=== PATIENT | female | born 1965 | race Caucasian/White ===

== ENCOUNTER 2018-07-04 11:20 | Observation (INO) ==
[2018-07-04 12:11] LABS: Bilirubin,Urine Negative (Negative); Blood,Urine Large (Negative); Clarity,Urine Turbid (Clear); Color,Urine Dark Yellow (Yellow); Glucose,Urine (UA) Normal (Normal); Ketones,Urine 15 mg/dL (Negative); Leukocyte Esterase,Urine Large (Negative); Nitrite,Urine Positive (Negative); Protein,Urine 100 mg/dL (Neg-Trace)
[2018-07-04] MEDS ORDERED: Isovue-370 500 ML INFUS..BTL IV ONE (12:12)
[2018-07-04 12:13] LABS: Bacteria,Urine Many per hpf (None-Few); Hyaline Casts,Urine None Seen per lpf (None-Few); Squamous Epithelial Cell,Urine Many per lpf (None-Few); WBC,Urine TNTC per hpf (0-3)
[2018-07-04 12:24] LABS: Basophils % 0.1 %; Eosinophils % 0.1 %; Hematocrit 34.5 % (35.3-44.9); Hemoglobin 11.7 g/dL (11.5-15.4); Immature Granulocytes % 0.5 % (0-4); Lymphocytes # 0.7 K/mcL (0.6-4.6); Lymphocytes % 6.2 %; Mean Corpuscular HGB Conc 33.9 g/dL (31.6-35.5); Mean Corpuscular Hemoglobin 30.9 pg (28.0-33.3); Mean Platelet Volume 10.8 fL (9.4-12.4); Monocytes # 0.8 K/mcL (0.0-1.3); Neutrophils # 9.7 K/mcL (1.6-8.9); Platelet Count 190 K/mcL (140-400); Red Blood Count 3.79 M/mcL (3.82-4.97); Red Cell Distribution Width 12.6 % (11.5-14.5); Segmented Neutrophils % 86.1 %
[2018-07-04 12:44] LABS: Troponin I < 0.03 ng/mL (< 0.04)
[2018-07-04 12:45] LABS: Alanine Aminotransferase 19 Units/L (7-52); Albumin 3.7 g/dL (3.5-5.7); Albumin/Globulin Ratio 0.9 (1.1-2.2); Alkaline Phosphatase 131 Units/L (34-104); Aspartate Amino Transferase 21 Units/L (13-39); BUN/Creatinine Ratio 15 (6-26); Bilirubin,Direct 0.8 mg/dL (0.0-0.2); Bilirubin,Indirect 0.5 mg/dL (0.0-1.2); Bilirubin,Total 1.3 mg/dL (0.3-1.0); Blood Urea Nitrogen 22 mg/dL (6-20); Carbon Dioxide 22 mEq/L (23-29); Chloride 94 mEq/L (98-107); Globulin 4.1 g/dL (2.4-3.5); Glucose 117 mg/dL (70-105); Magnesium 1.8 mg/dL (1.6-2.6); Osmolality,Calculated 272 (280-300); Potassium 3.5 mEq/L (3.5-5.1); Sodium 129 mEq/L (136-145); Total Protein 7.8 g/dL (6.4-8.9); eGFR For Non-African Americans 37 (> 60)
[2018-07-04] MEDS ORDERED: 0.9 % Sodium Chloride 1,000 ML IVC ONE (14:35)
--- NOTE | 2018-07-04 15:22 | Emergency Department Note ---
Disposition Clinical Impression: Pyelonephritis, CATALINA (acute kidney injury) Sepsis Qualifiers: Sepsis type: sepsis due to unspecified organism Qualified Code(s): A41.9 - Sepsis, unspecified organism Disposition: Admitted As Inpatient Condition: Good Referrals: NONE,PCP [Primary Care Provider] - General Adult HPI - General Chief complaint: ED Nausea/Vomiting/Diarrhea Stated complaint: "vomiting,chills,back pain" Time Seen by Provider: 07/04/18 11:26 Source: patient Limitations: no limitations Nursing Notes Reviewed: Yes Vital Signs Reviewed: Yes - History of Present Illness HPI Narrative: Patient presents today for evaluation of multiple complaints. Patient states that she has burning with urination for over the last week. Patient started developing side pain which she states is worse in the right flank pain. Patient states she is also had fevers at home as well as nausea and decreased appetite. Patient states she has not been able to keep anything down over the last day. Patient reevaluated for pyonephritis and likely admitted secondary to elevated heart rate and concern for sepsis. Pain Scale: 4 - Related Data Home Medications Medication Instructions Recorded Confirmed No Known Home Drugs 07/04/18 07/04/18 Allergies Allergy/AdvReac Type Severity Reaction Status Date / Time Penicillins Allergy swelling Verified 07/04/18 13:27 acetaminophen AdvReac Chest Pain Verified 07/04/18 13:27 [From Tylenol-Codeine] codeine AdvReac Chest Pain Verified 07/04/18 13:27 [From Tylenol-Codeine] tramadol [From Ultram] AdvReac Chest Pain Verified 07/04/18 13:27 All systems ED: reviewed and negative except as stated. Review of Systems: As Per HPI Constitutional: Reports: fever, chills, weakness ENT ED: Denies: congestion Cardiovascular: Denies: chest pain, palpitations Respiratory: Reports: cough. Denies: dyspnea, wheezes Gastrointestinal: Reports: abdominal pain, nausea. Denies: vomiting, diarrhea, constipation Genitourinary: Reports: urgency, dysuria, frequency Musculoskeletal: Reports: back pain Integumentary: Denies: rash, abrasion Neurological: Reports: weakness (Generalized). Denies: headache Endocrine: Reports: fatigue Past Medical History - Past Medical History Medical history: Reports: no medical history Psychiatric history: Reports: anxiety [employer] history: Reports: no [employer] history, bilateral tubal ligation - Social History Smoking Status: Current every day smoker Smokeless Tobacco Status: No Alcohol use: Reports: none Drug use: Reports: none Physical Exam General: Well appearing, nontoxic, no acute distress Head: Normocephalic Atraumatic Eyes: PERRL, EOMI ENT: Airway patent, no stridor Neck: supple, no meningismus Chest: Lungs clear to auscultation bilateral Cardiac: Regular rate and rhythm, no murmurs, rubs or gallops Abdomen: soft, mild generalized tenderness with our rebound or guarding, CVA tenderness worse in the right than the left. Musculoskeletal: Calves symmetric, nontender Skin: No rash, normal skin tone Neuro: Alert and Oriented to person, place, and time; No focal deficit, - General Limitations: no limitations General appearance: alert, in no apparent distress Course - Reevaluation(s) Reevaluation #1: Significant urinary tract infection in the setting of acute kidney injury given the fact that we do not have the previous creatinine. Patient does have leukocytosis as well as tachycardia. Patient will receive fluids as well as IV antibiotics. Patient be admitted to the hospital service for further evaluation. - Consultations Consultation #1: Discussed with hospitalist. Patient accepted for admission. Vital Signs Temperature 100.1 F H 07/04/18 11:26 Pulse Rate 112 07/04/18 11:26 Respiratory Rate 18 07/04/18 11:26 Blood Pressure 125/68 07/04/18 11:26 O2 Sat by Pulse Oximetry 97 07/04/18 11:26 Temperature 100.1 F H 07/04/18 11:35 Pulse Rate 107 07/04/18 15:00 Respiratory Rate 14 07/04/18 15:00 Blood Pressure 121/60 07/04/18 15:00 O2 Sat by Pulse Oximetry 99 07/04/18 15:00 Oxygen Delivery Oxygen Delivery Room Air Medical Decision Making - Lab Data Result diagrams: 07/04/18 11:52 07/04/18 11:52 Lab Results 07/04/18 07/04/18 07/04/18 Range/Units 11:52 11:52 11:52 WBC 11.3 H (4.3-11.1) K/mcL RBC 3.79 L (3.82-4.97) M/mcL Hgb 11.7 (11.5-15.4) g/dL Hct 34.5 L (35.3-44.9) % MCV 91.0 (83.0-100.0) fL MCH 30.9 (28.0-33.3) pg MCHC 33.9 (31.6-35.5) g/dL RDW 12.6 (11.5-14.5) % Plt Count 190 (140-400) K/mcL MPV 10.8 (9.4-12.4) fL Immature Gran % 0.5 (0-4) % Seg Neutrophils % 86.1 % Lymphocytes % 6.2 % Monocytes % 7.0 % Eosinophils % 0.1 % Basophils % 0.1 % Neutrophils # 9.7 H (1.6-8.9) K/mcL Lymphocytes # 0.7 (0.6-4.6) K/mcL Monocytes # 0.8 (0.0-1.3) K/mcL Eosinophils # 0.0 (0.0-0.6) K/mcL Basophils # 0.0 (0.0-0.2) K/mcL Sodium 129 L (136-145) mEq/L Potassium 3.5 (3.5-5.1) mEq/L Chloride 94 L (98-107) mEq/L Carbon Dioxide 22 L (23-29) mEq/L BUN 22 H (6-20) mg/dL Creatinine 1.47 H (0.60-1.20) mg/dL Est GFR ( Amer) 45 L (> 60) Est GFR (Non-Af Amer) 37 L (> 60) BUN/Creatinine Ratio 15 (6-26) Glucose 117 H (70-105) mg/dL Calculated Osmolality 272 L (280-300) Lactic Acid (0.5-2.2) mmol/L Calcium 9.0 (8.6-10.3) mg/dL Magnesium 1.8 (1.6-2.6) mg/dL Total Bilirubin 1.3 H (0.3-1.0) mg/dL Direct Bilirubin 0.8 H (0.0-0.2) mg/dL Indirect Bilirubin 0.5 (0.0-1.2) mg/dL AST 21 (13-39) Units/L ALT 19 (7-52) Units/L Alkaline Phosphatase 131 H (34-104) Units/L Troponin I < 0.03 (< 0.04) ng/mL Serum Total Protein 7.8 (6.4-8.9) g/dL Albumin 3.7 (3.5-5.7) g/dL Globulin 4.1 H (2.4-3.5) g/dL Albumin/Globulin Ratio 0.9 L (1.1-2.2) Lipase 16 (11-82) Units/L Urine Color (Yellow) Urine Clarity (Clear) Urine pH (5.0-8.0) pH Units Ur Specific [place] (1.010-1.025) Urine Protein (Neg-Trace) mg/dL Urine Glucose (UA) (Normal) mg/dL Urine Ketones (Negative) mg/dL Urine Blood (Negative) Urine Nitrite (Negative) Urine Bilirubin (Negative) Urine Urobilinogen (Normal) mg/dL Ur Leukocyte Esterase (Negative) Urine Microscopic RBC (0-3) per hpf Urine Microscopic WBC (0-3) per hpf Ur Squamous Epith Cells (None-Few) per lpf Urine Bacteria (None-Few) per hpf Hyaline Casts (None-Few) per lpf Ur Culture Indicated? (NO) 07/04/18 07/04/18 Range/Units 11:52 11:54 WBC (4.3-11.1) K/mcL RBC (3.82-4.97) M/mcL Hgb (11.5-15.4) g/dL Hct (35.3-44.9) % MCV (83.0-100.0) fL MCH (28.0-33.3) pg MCHC (31.6-35.5) g/dL RDW (11.5-14.5) % Plt Count (140-400) K/mcL MPV (9.4-12.4) fL Immature Gran % (0-4) % Seg Neutrophils % % Lymphocytes % % Monocytes % % Eosinophils % % Basophils % % Neutrophils # (1.6-8.9) K/mcL Lymphocytes # (0.6-4.6) K/mcL Monocytes # (0.0-1.3) K/mcL Eosinophils # (0.0-0.6) K/mcL Basophils # (0.0-0.2) K/mcL Sodium (136-145) mEq/L Potassium (3.5-5.1) mEq/L Chloride (98-107) mEq/L Carbon Dioxide (23-29) mEq/L BUN (6-20) mg/dL Creatinine (0.60-1.20) mg/dL Est GFR ( Amer) (> 60) Est GFR (Non-Af Amer) (> 60) BUN/Creatinine Ratio (6-26) Glucose (70-105) mg/dL Calculated Osmolality (280-300) Lactic Acid 1.1 (0.5-2.2) mmol/L Calcium (8.6-10.3) mg/dL Magnesium (1.6-2.6) mg/dL Total Bilirubin (0.3-1.0) mg/dL Direct Bilirubin (0.0-0.2) mg/dL Indirect Bilirubin (0.0-1.2) mg/dL AST (13-39) Units/L ALT (7-52) Units/L Alkaline Phosphatase (34-104) Units/L Troponin I (< 0.04) ng/mL Serum Total Protein (6.4-8.9) g/dL Albumin (3.5-5.7) g/dL Globulin (2.4-3.5) g/dL Albumin/Globulin Ratio (1.1-2.2) Lipase (11-82) Units/L Urine Color Dark Yellow (Yellow) Urine Clarity Turbid A (Clear) Urine pH 6.0 (5.0-8.0) pH Units Ur Specific [place] 1.010 (1.010-1.025) Urine Protein 100 H (Neg-Trace) mg/dL Urine Glucose (UA) Normal (Normal) mg/dL Urine Ketones 15 H (Negative) mg/dL Urine Blood Large H (Negative) Urine Nitrite Positive A (Negative) Urine Bilirubin Negative (Negative) Urine Urobilinogen 2.0 H (Normal) mg/dL Ur Leukocyte Esterase Large H (Negative) Urine Microscopic RBC 3-5 H (0-3) per hpf Urine Microscopic WBC TNTC H (0-3) per hpf Ur Squamous Epith Cells Many H (None-Few) per lpf Urine Bacteria Many H (None-Few) per hpf Hyaline Casts None Seen (None-Few) per lpf Ur Culture Indicated? NO. A (NO)
[2018-07-04] MEDS ORDERED: Naloxone 0.4 MG/ML INJ IVP PRN (16:03)
[2018-07-04] MEDS ORDERED: Ondansetron 4 MG/2 ML VIAL IVP PRN (16:06)
--- NOTE | 2018-07-04 16:13 | Internal Med History&Physical ---
Date of Encounter: 07/04/18 Time of Encounter: 16:07 Internal Medicine - H&P: HPI Chief complaint: Chills, Nausea, Frequency Admitted From: Home Plans for Post Hospital Care: Home History of present illness: Ms. Jackson is a 53 year old female with no significant PMH who presented with 4 days hx of urinary frequency, associated with burning on urination and diarrhea. She reports being in her usual state of health till 4 days ago when she suddenly developed these symptoms. This was accompanied by nausea and vomiting and loss of appetitie 48 hrs ago. She reports no episodes of diarrhea today , last episode was last night at home. She denies recent instrumentation , vaginal discharge, pelvic pain or discomfort,. She reports associated flank pain. She has no prior history of same, she does not see primary care physician and has not had any blood work done in several years. She has no sick contacts, recent travels, rhinorrhea, cough SOB, chest pain, or leg swelling, no orthopnea and no fatigue. Denies any home medications, denies illicit drug use. Smokes half a pack a day. Reports allergies to penicillin, " T" (unsure if tramadol or trimethroprin), acetaminophen or codeine Workup in the ER revealed white cell count of 11,400 with left shift, hyponatremia, hypo-osmolarity, creatinine of 1.47 baseline is unknown troponin is negative. She was tachycardic in the ER with normal respiratory rate and blood pressure. Urine analysis showed hematuria with gross red cells, as well as positive nitrites and leukocyte esterase. Due to inability to tolerate orally, she was presented for admission to hospital today sepsis. She will be placed on observation for management of suspected acute kidney injury, due to persistent nausea or vomiting, urinary tract infection with cystitis. Abdomen CAT scan shows no obvious abnormalities. Of note, patient's room was locked and unable to be opened from outside when I went to evaluate her, she then opened the door wearing a face mask, she states it was given to her here. We will obtain urine toxicology. She also requested a Jones placement to hekp ease her frequencey, educated that its not indicated at this time She is full code Past Med Surg Social Fam HX - Past Medical History Medical history: no medical history Psychiatric history: anxiety - Social History Smoking Status: Current every day smoker Smokeless Tobacco Status: No Alcohol use: none Drug use: none Internal Medicine - H&P: Meds No Known Home Drugs 07/04/18 [History] 3 Allergy/AdvReac Type Severity Reaction Status Date / Time Penicillins Allergy swelling Verified 07/04/18 13:27 acetaminophen AdvReac Chest Pain Verified 07/04/18 13:27 [From Tylenol-Codeine] codeine AdvReac Chest Pain Verified 07/04/18 13:27 [From Tylenol-Codeine] tramadol [From Ultram] AdvReac Chest Pain Verified 07/04/18 13:27 All Systems PM: A 10-system review of systems was performed and is negative for pertinent findings except as documented above in the HPI. - Constitutional Constitutional: as per HPI - EENT Eyes: as per HPI Ears: as per HPI Nose, mouth and throat: as per HPI - Cardiovascular Cardiovascular ROS IM: as per HPI - Respiratory Respiratory: as per HPI - Gastrointestinal Gastrointestinal: as per HPI - Genitourinary Genitourinary: as per HPI - Musculoskeletal Musculoskeletal ROS IM: as per HPI - Integumentary Integumentary IM: as per HPI - Neurological Neurological ROS: as per HPI - Hematologic/Lymphatic Hematologic/Lymphatic: as per HPI - Constitutional Vitals: Temp Pulse Resp BP Pulse Ox 100.1 F H 107 14 121/60 99 07/04/18 11:35 07/04/18 15:00 07/04/18 15:00 07/04/18 15:00 07/04/18 15:00 General appearance: Present: A&O X 3, pleasant, no acute distress Exam: Tachycardic - Head Head exam: Present: atraumatic, normocephalic - Eye Eye exam: Present: PERRL, conjuntiva pink, sclera anicteric Pupils: Present: PERRL - Neck Neck exam general surgery: Present: supple, trachea midline. Absent: lymphadenopathy - Respiratory Respiratory exam: Present: CTAB. Absent: accessory muscle use, rales, rhonchi, wheezes - Cardiovascular Cardiovascular exam: Present: RRR, +S1, +S2. Absent: diastolic murmur, gallop, rubs, systolic murmur - GI/Abdominal GI/Abdominal exam: Present: normal bowel sounds, soft, no peritoneal signs. Absent: distended, tenderness - Extremities Exam Extremities exam: Present: warm, radial pulses palpable and symmetrical. Absent : calf tenderness, cyanotic, pedal edema - Neurological Exam Neurological exam: Present: CN II-XII intact, oriented X3, no focal deficits. Absent: pronater drift, facial droop, speech deficit - Skin Skin exam: Present: dry, intact Internal Med - H&P Results - Labs CBC & Chem 7: 07/04/18 11:52 07/04/18 11:52 - Assessment and plan (1) SIRS (systemic inflammatory response syndrome) Current Visit: Yes Status: Acute Assessment and plan: Patient presented with low grade fever, 100.1, (does not meet criteria for sepsis at this time HR in the 100s WBC is 11,400 (sepsis criteria is >12,000) She has a CATALINA which may be due to her persistent nausea and vomiting for the past 3-4 days Continue to monitor She may progress to sepsis, severe sepsis Continue IVF hydration (2) CATALINA (acute kidney injury) Current Visit: Yes Status: Acute Assessment and plan: Baseline unknown No prior labs here, patient does not have a PCP, has not been to a doctor in ages Assume pre-renal cause likely due to dehydration from emesis, nausea, diarrhea Continue IVF hydration CT scan noted-no stones, no evidence of pyelonephritis, no obstruction, evidence of cortical thinning on R kidney Obtain renal USS Strict I and Os (3) UTI (urinary tract infection) Current Visit: Yes Status: Acute Assessment and plan: UA showed hematuria, RBCs++, Nitrites and LEs Patient is symptomatic with frequency, diarrhea, nausea and vomiting She denies vaginal discharge, recent instrumentation Urine culture and blood culture has been ordered She has been started on ciprofloxacin in the ER, will continue She reports "swelling like an elephant man" when she takes penicillins or "a medicine that starts with T" She believes she might be able to take cephalosporins We will escalate to cephalosporins if symptoms persist Obtain Utox Qualifiers: Urinary tract infection type: acute cystitis Hematuria presence: with hematuria Qualified Code(s): N30.01 - Acute cystitis with hematuria (4) Tobacco abuse Current Visit: Yes Status: Chronic Assessment and plan: encourage cessation (5) Hyponatremia Current Visit: Yes Status: Acute Assessment and plan: Hypoosmolar presenting a of 129 likely hypovolemic due to n/v/d Check lipids, TSH urine Na and urine osmolality Continue hydratin with saline at 75cc/hr Monitor Na q8-12h - Time Spent With Patient Total time spent is greater than 50% in coordination of care (as documented) at patient's floor/unit and/or counseling patient:
[2018-07-04] MEDS ORDERED: Acetaminophen 325 MG TABLET PO ONE (20:32)
[2018-07-04 20:51] LABS: Amphetamine Screen,Urine Negative ng/mL (Cutoff=1000); Barbiturate Screen,Urine Negative ng/mL (Cutoff=200); Benzodiazepines Screen,Urine Negative ng/mL (Cutoff=200); Cannabinoid Screen,Urine Negative ng/mL (Cutoff = 50); Cocaine Screen,Urine Negative ng/mL (Cutoff= 300); Opiate Screen,Urine Negative ng/mL (Cutoff=300); Phencyclidine Screen,Urine Negative ng/mL (Cutoff=25)
[2018-07-04] MEDS: 0.9 % Sodium Chloride 250 ML IVC SCH ×2 (22:21→22:43)
[2018-07-04] MEDS: 0.9 % Sodium Chloride 1,000 ML IVC SCH (22:42)
[2018-07-05] MEDS: 0.9 % Sodium Chloride 250 ML IVC SCH (02:34)
[2018-07-05] MEDS: Melatonin 3 MG TABLET PO PRN ×2 (03:25→20:39)
[2018-07-05 06:04] LABS: Basophils % 0.1 %; Hematocrit 29.6 % (35.3-44.9); Immature Granulocytes % 0.5 % (0-4); Lymphocytes # 1.1 K/mcL (0.6-4.6); Lymphocytes % 11.5 %; Mean Corpuscular HGB Conc 33.8 g/dL (31.6-35.5); Mean Corpuscular Hemoglobin 30.1 pg (28.0-33.3); Mean Corpuscular Volume 89.2 fL (83.0-100.0); Mean Platelet Volume 10.3 fL (9.4-12.4); Monocytes # 0.9 K/mcL (0.0-1.3); Monocytes % 9.7 %; Neutrophils # 7.4 K/mcL (1.6-8.9); Platelet Count 197 K/mcL (140-400); Red Blood Count 3.32 M/mcL (3.82-4.97); Red Cell Distribution Width 12.6 % (11.5-14.5); Segmented Neutrophils % 78.2 %
[2018-07-05 06:26] LABS: Calcium 8.7 mg/dL (8.6-10.3); Potassium 3.4 mEq/L (3.5-5.1)
[2018-07-05 06:27] LABS: Chol/HDL Ratio 10.4 (0-4.9)
[2018-07-05 06:34] LABS: Estimated Average Glucose 111 mg/dl; Hemoglobin A1C 5.5 %
[2018-07-05 06:38] LABS: Thyroid Stimulating Hormone 0.097 mcIU/mL (0.340-5.600)
[2018-07-05] MEDS: *HR* Heparin 5,000 UNIT/ML VIAL SQ SCH ×2 (14:23→20:40)
[2018-07-05] MEDS: 0.9 % Sodium Chloride 1,000 ML IVC SCH (14:40)
--- NOTE | 2018-07-05 18:45 | Electrocardiograph Report ---
[address] [place], [place] [address] Test Date: 2018-07-04 Pat Name: Leigh Jackson Department: EXAM2 Room: 3A46 Gender: F Management Professor: : [id number] Requested By: [id number] Order Number: [id number] Reading MD: Donnie Hernandez Measurements Intervals [place] Rate: 107 P: 45 AL: 144 QRS: 65 QRSD: 88 T: 60 QT: 319 QTc: 426 Interpretive Statements Sinus tachycardia Electronically Signed On 07-05-2018 18:43:46 EDT by Donnie Hernandez
--- NOTE | 2018-07-05 19:04 | Internal Med Progress Note ---
Hospitalist Progress Note - Encounter Date of Encounter: 07/05/18 Time of Encounter: 11:00 - Subjective Interval History: Patient with improvement in hyponatremia but with findings of nonspecific calcification along pericardium Echocardiogram which showed LVEF of 60% with atypical septal motion of unclear etiology trivial pericardial effusion; cardiology consulted - Exam Vitals: Temp Pulse Resp BP Pulse Ox 99.6 F 78 12 100/64 97 07/05/18 15:07 07/05/18 15:07 07/05/18 15:07 07/05/18 15:07 07/05/18 15:07 Exam: Gen.: Nonacute distress, alert and oriented 3 ENT: Mucosal membranes moist Respiratory: Lungs are clear to auscultation bilaterally without any wheezing rhonchi or rales Cardiovascular: Normal S1 and S2 regular rate rhythm no murmurs rubs or gallops Abdomen: Soft, nontender and nondistended with positive bowel sounds Extremities: No lower extremity edema Skin: Normal color - Assessment and Plan (1) CATALINA (acute kidney injury) Current Visit: Yes Status: Acute Assessment and Plan: Resolved; continue to monitor (2) UTI (urinary tract infection) Current Visit: Yes Status: Acute Assessment and Plan: Continue IV Cipro (3) Tobacco abuse Current Visit: Yes Status: Chronic Assessment and Plan: encourage cessation (4) Hyponatremia Current Visit: Yes Status: Acute Assessment and Plan: Hypoosmolar presenting on admission with sodium of 129; Na 133 this morning Continue to monitor - Time Spent with Patient Total time spent is greater than 50% in coordination of care (as documented) at patient's floor/unit and/or counseling patient: Internal Medicine: Result - Labs CBC & Chem 7: 07/05/18 05:48 07/05/18 05:48 Labs: Short CBC 07/05/18 Range/Units 05:48 WBC 9.5 (4.3-11.1) K/mcL Hgb 10.0 L D (11.5-15.4) g/dL Hct 29.6 L (35.3-44.9) % Plt Count 197 (140-400) K/mcL Neutrophils # 7.4 (1.6-8.9) K/mcL BMP 07/05/18 05:48 Sodium 133 L Potassium 3.4 L Chloride 103 Carbon Dioxide 22 L BUN 16 Creatinine 1.18 Glucose 125 H Calcium 8.7 - Impressions Impressions Echocardiogram 07/05/18 11:23 Impressions: LVEF 60%. Normal LV chamber size, wall thickness and function. Mild left ventricular diastolic dysfunction. Atypical septal motion of unclear etiology. Normal right ventricular structure and function. No evidence of pulmonary hypertension. No significant valvular dysfunction. Consult Discharge Plan - Plan Referrals: NONE,PCP [Primary Care Provider] - (2) UTI (urinary tract infection) Qualifiers: Urinary tract infection type: acute cystitis Hematuria presence: with hematuria Qualified Code(s): N30.01 - Acute cystitis with hematuria
[2018-07-06] MEDS: *HR* Heparin 5,000 UNIT/ML VIAL SQ SCH (05:02)
--- NOTE | 2018-07-06 09:30 | Cardiology Consult Note ---
<Krysta Lemons - Last Filed: 07/06/18 10:20> Date of Encounter: 07/06/18 Time of Encounter: 08:45 Assessment and Plan (1) Abnormal CT of the abdomen Status: Acute Per cardiology: -Admitted with UTI symptoms. -Non-specific calcifications noted in pericardium, concern for possible pericarditis. -ECG with no pericarditis changes. Non-specific T wave abnormalities noted, similar to baseline. -Denies chest pain. -TTE with LVEF 60%, mild diastolic dysfunction, atypical septal motion, trivial pericardial effusion, no segmental wall motion abnormalities noted. -No signs/symptoms of pericarditis noted. Anticipate cardiology sign off. (2) CATALINA (acute kidney injury) Status: Acute Per cardiology: -CATALINA noted on admission, improving. -Management per primary service. Discussion w patient/family: The assessment and plan as outlined above was discussed with the patient who expressed understanding and agreement. All questions were answered. Thank you for involving us in the care of your patient. Please call with any questions. Discussed and reviewed with . History of Present Illness Consult date: 07/05/18 Requesting physician: Ian Agudelo Consult reason: abnormal CT Chief complaint: urinary symptoms History of present illness: Ms. Jackson is a 53 year old female with a relevant past medical history of previous tobacco abuse, anxiety who presented to [facility] with complaints of urinary burning, frequency. Cardiology consulted for possible restrictive pericarditis per CT scan. Patient denies chest pain. Denies chest pain with position change. Denies shortness of breath. Denies fatigue. Past Med Surg Social Fam HX - Past Medical History Attestation: Yes The following information was validated with the patient. Source: patient, old records reviewed Medical history: no medical history Psychiatric history: anxiety - Past Surgical History Surgical History: cholecystectomy Additional surgical history: tubal - Social History Smoking Status: Current every day smoker Packs per day: 1 pack per day Smokeless Tobacco Status: No Alcohol use: none Drug use: none Medications and Allergies Levofloxacin [Levaquin] 500 mg PO DAILY #5 tablet 07/06/18 [Rx] 3 Allergy/AdvReac Type Severity Reaction Status Date / Time Penicillins Allergy swelling Verified 07/04/18 13:27 codeine AdvReac Chest Pain Verified 07/04/18 13:27 [From Tylenol-Codeine] tramadol [From Ultram] AdvReac Chest Pain Verified 07/04/18 13:27 All Systems Review: The remainder of the systems were reviewed and are negative - Cardiovascular Cardiovascular: as per HPI - Genitourinary Genitourinary: dysuria Physical Examination Vital Signs, Last 4 Hours Temp Pulse Resp BP Pulse Ox 07/06/18 07:02 98.4 F 65 16 124/74 98 General: Conversant, No Apparent Distress HEENT: Atraumatic, Normocephaly, Mucus Membranes Moist Neck: No JVD, Normal carotid pulses Cardiac: Reg Rate and Rhythm, Normal S1 and S2, No Murmur Lungs: Normal Breath Sounds, No Wheeze, Rales, Rhonchi Neuro: Alert and responsive, No focal deficits noted Abdomen: Soft, Non-Tender Skin: No rashes noted on visualized skin Musculoskeletal: No Chest Wall Tenderness Extremities: No Clubbing, No Cyanosis, No Edema, Normal Pulses Results 07/05/18 05:48 07/05/18 05:48 Impressions Echocardiogram 07/05/18 11:23 Impressions: LVEF 60%. Normal LV chamber size, wall thickness and function. Mild left ventricular diastolic dysfunction. Atypical septal motion of unclear etiology. Normal right ventricular structure and function. No evidence of pulmonary hypertension. No significant valvular dysfunction. Active Medications Heparin Sodium (Porcine) (Heparin) 5,000 unit SQ Q8HCO TONEY Stop: 01/04/19 14:01 Last Admin: 07/06/18 05:02 Dose: 5,000 unit Ciprofloxacin Lactate (Cipro Premix 400 Mg/200 Ml) 400 mg in 200 mls @ 200 mls/ hr IVPB Q12HR TONEY Stop: 01/04/19 06:01 Last Infusion: 07/06/18 06:15 Dose: Infused Melatonin (Melatonin) 1.5 mg PO HS PRN PRN Reason: Insomnia Stop: 01/04/19 03:14 Last Admin: 07/05/18 20:39 Dose: 1.5 mg Naloxone HCl (Narcan) 0.4 mg IVP Q2MIN PRN PRN Reason: SEE COMMENTS Stop: 01/03/19 16:04 Ondansetron HCl (Zofran) 4 mg IVP Q8HR PRN; Protocol PRN Reason: Nausea And Vomiting Stop: 01/03/19 16:07 Laboratory Tests 07/04/18 07/04/18 07/05/18 11:52 11:52 05:48 Hgb 11.7 10.0 L D Creatinine 1.47 H Troponin I < 0.03 07/05/18 05:48 Hgb Creatinine 1.18 Troponin I - Imaging and Cardiology Chest Xray: report reviewed Echo: report reviewed - EKG Interpretation EKG results cardiology: personally reviewed (ECG with ST, HR 107, non-specific T wave abnormalities noted.), other (Telemetry reviewed with average HR previous 12 hours noted to be 67, SR. PVCs, PACs, blocked PACs noted.) Consult Discharge Plan - Plan Instructions: Urinary Tract Infection in Women (DC) Referrals: NONE,PCP [Primary Care Provider] - Prescriptions: Levofloxacin [Levaquin] 500 mg PO DAILY #5 tablet <Dustin Novoa - Last Filed: 07/06/18 19:02> Date of Encounter: 07/06/18 Time of Encounter: 14:00 - Attending Attestation I have personally performed a face to face evaluation on this patient. I have reviewed and agree with the care plan. History and Exam by me shows: CC: Urinary burning, frequency HPI: Pt presented to ER with complaints of urinary urgency and frequency, mild nausea and anorexia. She underwent chest and abdominal CT scan, chest scan suggested pericardial calcifications and possible thickening, suggestive of restrictive pericarditis. She denies chest pain, pressure, shortness of breath , lower extremity edema, palpitations, dizziness and near syncope. She reports before developed urinary symptoms was able to perform all normal activities of daily living without symptoms. She is currently resting comfortably in no apparent distress. PMH: Reviewed ROS: Reviewed Labs, xrays, echo reviewed PE: pt seen and examined, agree with findings as documented. IMP/Plan 1. Abnormal abdominal CT, with peripheral findings of mild pericardial calcifications, concern for restrictive pericarditis, with essentially normal echocardiogram, no findings to suggest pericardial disease. 2. UTI Will sign off, please contact if can be of service. Assessment and Plan Discussion w patient/family: The assessment and plan as outlined above was discussed with the patient and/or family members who expressed understanding and agreement. All questions were answered. Thank you for involving us in the care of your patient. Please call with any questions. History of Present Illness History of present illness: Ms. Jackson is a 53 year old female All Systems Review: The remainder of the systems were reviewed and are negative Results 07/05/18 05:48 07/05/18 05:48
[2018-07-06 09:58] VITALS: BP 97/57
--- NOTE | 2018-07-06 12:54 | Discharge Summary ---
- NOTES TO OUTPATIENT PROVIDER Notes to Outpatient Provider: none Date of Encounter: 07/06/18 Time of Encounter: 11:00 - Discharge Diagnosis (1) CATALINA (acute kidney injury) Priority: Primary Status: Acute (2) UTI (urinary tract infection) Priority: Primary Status: Acute Qualifiers: Urinary tract infection type: acute cystitis Hematuria presence: with hematuria Qualified Code(s): N30.01 - Acute cystitis with hematuria (3) Tobacco abuse Priority: Secondary Status: Chronic (4) Hyponatremia Priority: Secondary Status: Acute Hospital course: Patient is a 53-year-old female with past medical history significant who presented with 4 days hx of urinary frequency, associated with burning on urination and diarrhea. She reports being in her usual state of health till 4 days ago when she suddenly developed these symptoms. This was accompanied by nausea and vomiting and loss of appetitie 48 hrs ago. During patients hospital stay she is treated for acute renal failure which resolved with IV fluids in addition for treatment for UTI with IV Cipro. Patient will be discharged to complete a 5 day course of Levaquin. - Time Spent with Patient Total time spent providing and/or coordinating discharge services: Less than 30 minutes - Discharge Medications Prescriptions: Levofloxacin [Levaquin] 500 mg PO DAILY #5 tablet Home Medications: Levofloxacin [Levaquin] 500 mg PO DAILY #5 tablet 07/06/18 [Rx] Allergies/Adverse Reactions: 3 Allergy/AdvReac Type Severity Reaction Status Date / Time Penicillins Allergy swelling Verified 07/04/18 13:27 codeine AdvReac Chest Pain Verified 07/04/18 13:27 [From Tylenol-Codeine] tramadol [From Ultram] AdvReac Chest Pain Verified 07/04/18 13:27 Date of admission: 07/04/18 15:56 Primary care physician: PCP NONE Consults: 07/05/18 12:32 Consult to Cardiology [CONS] Routine Comment: Consulting Provider: Cardiology Melina Reason for Consult: suspected restricted pericarditis Call Completed: Yes - Constitutional Vitals: Temp Pulse Resp BP Pulse Ox 98.2 F 68 16 97/57 95 07/06/18 09:51 07/06/18 09:51 07/06/18 09:51 07/06/18 09:51 07/06/18 09:51 General appearance: Present: A&O X 3, pleasant, no acute distress Exam: Gen.: Nonacute distress, alert and oriented 3 Skin: Normal color - Patient Status Disposition: Home, Self-Care Condition: Good - Discharge Instructions Instructions: Urinary Tract Infection in Women (DC) Follow Up With: NONE,PCP [Primary Care Provider] - Forms: Inpatient Work/School Release
== END 2018-07-06 13:30 | disposition home or self-care (01) ==
LOC: 3ANU 11:20 → EMEROOARM 11:20 → SUATTDRO 15:56 → 3ANU 18:26
PROVIDERS: ADMIT Internal Medicine; ATTEND Hospitalist